=== PATIENT | female | born 1955 | race Caucasian/White ===

== ENCOUNTER 2022-04-10 20:57 | Emergency (ER) | payer MEDICARE, OTHER ==
[2022-04-10] MEDS ORDERED: HYDROmorphone 0.5 MG/0.5 ML Syringe IM ONE (21:53)
== END 2022-04-10 22:55 | disposition home or self-care (01) ==
LOC: JD.ED 20:57
DX: S52.502A Unspecified fracture of the lower end of left radius, initial encounter for closed fracture (principal); Z88.5 Allergy status to narcotic agent; Z88.1 Allergy status to other antibiotic agents; W18.39XA Other fall on same level, initial encounter
CPT/HCPCS: 29125; 73110-LT; 96372; 99283; J1170